=== PATIENT | female | born 1990 | race African-American/Black ===

== ENCOUNTER 2019-09-01 09:43 | Emergency (ER) | payer MEDICAID ==
[~2019-09-01] VITALS: Ht 157.5 cm; Wt 86.2 kg
[2019-09-01 10:09] VITALS: BP 132/78
--- NOTE | 2019-09-01 10:41 | NUR ---
28 Y/O F C/O POSSIBLE , PT WAS TOLD SHE HAD AN ECTOPIC X2 WEEKS AGO. PT HAS PAIN LEFT SIDE 03/07. PT WOULD LIKE TO BE CHECK FOR . ELMA
--- NOTE | 2019-09-01 11:03 | NUR ---
PT RESTING COMFORTABLY. INFORMED PT WE ARE WAITING FOR RESULTS FROM TESTS. GAVE PT BLANKET.
[2019-09-01 11:18] LABS: BASOPHILS % (AUTO) 0.6 % (0.0-2.0); EOSINOPHILS # (AUTO) 0.1 K/uL (0-0.4); HEMATOCRIT 40.9 % (36-48); HEMOGLOBIN 13.5 g/dL (12.0-16.0); LYMPHOCYTES # (AUTO) 1.7 K/uL (2.5-16.5); MEAN CORPUSCULAR HEMOGLOBIN 31 pg (27-31); MEAN CORPUSCULAR HGB CONC 33 g/dL (33-37); MEAN CORPUSCULAR VOLUME 94.9 fL (80-94); MONOCYTES # (AUTO) 0.4 K/uL (0.8-1.0); MONOCYTES % (AUTO) 5.9 % (1.7-9.3); NEUTROPHILS # (AUTO) 5.3 K/uL (1.8-7.7); NEUTROPHILS % (AUTO) 69.5 % (42.2-75.2); PLATELET COUNT (AUTO) 240 K/uL (140-450); RED BLOOD CELL COUNT(AUTO) 4.32 MIL/uL (4.20-5.40); RED CELL DISTRIBUTION WIDTH 13.4 % (11.6-13.7); WHITE BLOOD COUNT (AUTO) 7.6 K/uL (4.8-10.8)
[2019-09-01 11:22] LABS: APPEARANCE,URINE SL CLOUDY (CLEAR); BILIRUBIN,URINE NEGATIVE (NEGATIVE); BLOOD, URINE TRACE-I (NEGATIVE); COLOR,URINE YELLOW (YELLOW); LEUKOCYTE ESTERASE ,URINE NEGATIVE (NEGATIVE); NITRITE, URINE NEGATIVE (NEGATIVE); PH,URINE 6.5 (5.0-9.0); UGLUCOSE NEGATIVE (NEGATIVE)
--- NOTE | 2019-09-01 11:44 | NUR ---
PT RETURNED FROM ULTRASOUND BY WHEELCHAIR. RESTING COMFORTABLY, WAITING FOR RESULTS.
[2019-09-01 11:51] LABS: ALBUMIN 3.6 g/dL (3.4-5.0); ANION GAP 13.5 (8-16); CARBON DIOXIDE 27.6 mmol/L (21-32); CREATININE 0.8 mg/dL (0.6-1.3); POTASSIUM 4.1 mmol/L (3.5-5.1); TOTAL BILIRUBIN 0.4 mg/dL (0.0-1.0)
[2019-09-01 11:57] LABS: RBC,URINE 11-20 (MOD) /HPF (0-5)
[2019-09-01 13:57] VITALS: BP 121/79
--- NOTE | 2019-09-01 13:57 | NUR ---
Patient discharged with v/s stable. Written and verbal after care instructions given and explained. Patient verbalized understanding. Ambulatory with steady gait. All questions addressed prior to discharge. Advised to follow up with PMD.
== END 2019-09-01 13:57 | disposition home or self-care (01) ==
LOC: MED 09:43
DX: O34.11 Maternal care for benign tumor of corpus uteri, first trimester (principal); N83.209 Unspecified ovarian cyst, unspecified side; Z3A.01 Less than 8 weeks gestation of pregnancy
CPT/HCPCS: 36415; 76856; 80053; 81001; 81025; 84702; 85025; 99284